=== PATIENT | female | born 1970 | race Caucasian/White ===

== ENCOUNTER 2020-10-17 13:36 | Emergency (ER) | payer OTHER, SELFPAY ==
[~2020-10-17] VITALS: Ht 157.5 cm; Wt 68.0 kg
[2020-10-17 13:38] VITALS: Ht 157.5 cm; Wt 68.0 kg
[2020-10-17 15:15] VITALS: BP 110/92
== END 2020-10-17 15:15 | disposition home or self-care (01) ==
LOC: ED 13:36
DX: U07.1 COVID-19 (principal); I10 Essential (primary) hypertension; E11.9 Type 2 diabetes mellitus without complications; G43.909 Migraine, unspecified, not intractable, without status migrainosus
CPT/HCPCS: U0003

== ENCOUNTER 2020-10-23 12:00 | Emergency (ER) | payer OTHER, SELFPAY ==
[~2020-10-23] VITALS: Ht 160 cm; Wt 68.9 kg
[2020-10-23 12:05] VITALS: Ht 160 cm; Wt 68.9 kg
[2020-10-23 14:41] VITALS: BP 116/74
== END 2020-10-23 14:41 | disposition home or self-care (01) ==
LOC: ED 12:00
DX: U07.1 COVID-19 (principal); E11.9 Type 2 diabetes mellitus without complications; G43.909 Migraine, unspecified, not intractable, without status migrainosus

== ENCOUNTER 2020-10-26 10:38 | Emergency (ER) | payer OTHER ==
[~2020-10-26] VITALS: Ht 157.5 cm; Wt 68.0 kg
[2020-10-26 10:41] VITALS: BP 99/60; Ht 157.5 cm; Wt 68.0 kg
== END 2020-10-26 11:25 | disposition home or self-care (01) ==
LOC: ED 10:38
DX: B34.9 Viral infection, unspecified (principal); E11.9 Type 2 diabetes mellitus without complications; G43.909 Migraine, unspecified, not intractable, without status migrainosus